=== PATIENT | male | born 1935 | race Caucasian/White ===

== ENCOUNTER 2021-08-31 15:29 | Emergency (ER) | payer OTHER, SELFPAY ==
[2021-08-31 15:34] VITALS: BP 197/88; PULSE 68; RESP 15; TEMP 36.4; O2SAT 95
--- NOTE | 2021-08-31 15:46 | DI.RAD.S_ITS ---
PROCEDURE: XR HIP W PEL IF DONE LT 2V INDICATIONS: questionable fall TECHNIQUE: 2 views of the hip were acquired. COMPARISON: None. FINDINGS: Bones: No fractures or dislocations. No suspicious bony lesions. The visualized pelvic ring appears intact. Generalized decrease in osseous mineralization noted. Mild acetabular joint space narrowing noted bilaterally. Moderate lower lumbar spine degenerative changes Soft tissues: No suspicious soft tissue calcifications or masses. IMPRESSION: Osteopenia without fracture or dislocation Degenerative changes Approved by: Sebas Sage M.D. on 08/31/2021 at 16:30
--- NOTE | 2021-08-31 16:59 | ED_ITS ---
HPI - Extremity Injury (Lower) <Nely Ennis [facility] - Last Filed: 08/31/21 20:51> General Chief Complaint: Extremity Injury, Lower Stated Complaint: non weight bearing Lt. foot Time Seen by Provider: 08/31/21 16:29 Source: patient Mode of arrival: EMS History of Present Illness HPI Narrative: This is an 86-year-old male with a history of iron deficiency anemia and has received blood transfusion for this recently and in the past who presents to the emergency department complaining of left hip pain for the last four months since he had a fall. On chart review patient was seen at [facility] ER on 2 and there had a pelvis x-ray without fracture showing moderate degenerative changes, head CT which shows no intracranial hemorrhage and no abnormality patient did have a left posterior scalp hematoma without associated fracture pain for the last four months since his fall. Patient has a history of mild dementia, I am not sure if patient means four days ago or if he means four months ago but it appears that he was evaluated for a fall two days ago and also had a fall four months ago. Patient states that his left hip pain is not any different than it is at baseline but it does hurt. He states that he gets his medicine given to him where he lives, and he needs pain medicine for this because it hurts. He denies having any pain medicine for this so far today. Patient states that his daughter takes care of all of his prescriptions and brings them to him. His daughter is not in the emergency department today, patient is oriented to self, location but not time. He states he is not able to walk on it well due to the pain. He states he uses a motorized wheelchair at home, he has seen his primary doctor 2 times for this hip pain, he denies having any history of arthritis in it, denies any sensation changes, or new falls or trauma. Related Data Previous Rx's Medication Instructions Recorded diclofenac sodium 3 % topical gel 1 applic TOPICAL BID #100 g 08/31/21 hydrocodone 5 mg-acetaminophen 325 1 tab PO BID PRN #14 tab 08/31/21 mg tablet lidocaine 5 % topical patch 1 patch TOPICAL DAILY PRN #15 ea 08/31/21 (Lidoderm) Allergies Allergy/AdvReac Type Severity Reaction Status Date / Time No Known Drug Allergies Allergy Verified 08/31/21 15:39 Review of Systems <JERMAINE Lozada - Last Filed: 08/31/21 20:51> Review of Systems Narrative: General: denies fever, chills, malaise, sweats, fatigue Head/Neck: denies headache, neck pain, dizziness Eyes: denies visual changes, eye pain Cardio: denies chest pain, palpitations, edema Respiratory: denies dyspnea, cough GI: denies abdominal pain, nausea, vomiting, or diarrhea : denies dysuria, hematuria, urinary retention, frequency or incontinence MSK: Endorses left hip pain, he states that is chronic and it always hurts and it does not feel any differently than it always does. Denies any Muscle weakness Skin: denies rash, itching, skin lesions or other Neuro: denies numbness, tingling Patient History <JERMAINE Lozada - Last Filed: 08/31/21 20:51> Social History Smoking Status: Unknown if ever smoked Smoking Status: Unknown if ever smoked alcohol intake frequency: holidays/special occasions only Substance Use Type: does not use Exam <JERMAINE Lozada - Last Filed: 08/31/21 20:51> Narrative Exam Narrative: Independently reviewed vitals signs and nursing notes. General: cooperative, comfortable, in no acute distress, well groomed Head: Healing contusion on his scalp, symmetrical facial expressions, no open wounds Neck: supple Eyes: equal round and reactive, EOMI, conjunctiva normal Nose: nares patent, no rhinorrhea Mouth/Throat: moist mucus membranes Cardiovascular: regular rate and rhythm, no peripheral edema, warm extremities Respiratory: normal effort, able to speak in complete sentences, no audible wheezing, stridor, or rales. No retractions or tachypnea. GI: abdomen soft, nontender to palpation, nondistended, no masses, no exquisite tenderness with exam, without guarding or rebound. MSK: moves all extremities, neurovascularly intact, generalized weakness, normal tone, patient able to lift leg off of bed and left right leg off the bed, denies any exacerbation of pain with this, he is able to flex his knee and flex his left hip, range of motion slightly decreased and limited due to pain Skin: brisk capillary refill, no rash, no erythema Neuro: normal speech and cognition, A&O x3 Psych: mental status is grossly normal, congruent mood, normal affect, pleasant and cooperative Initial Vital Signs Initial Vital Signs: Vital Signs Temperature 97.6 F 08/31/21 15:34 Pulse Rate 68 08/31/21 15:34 Respiratory Rate 15 08/31/21 15:34 Blood Pressure 197/88 H 08/31/21 15:34 Pulse Oximetry 95 08/31/21 15:34 <Madina Earl DO - Last Filed: 09/07/21 07:45> Initial Vital Signs Initial Vital Signs: Vital Signs Temperature 97.6 F 08/31/21 15:34 Pulse Rate 68 08/31/21 15:34 Respiratory Rate 15 08/31/21 15:34 Blood Pressure 197/88 H 08/31/21 15:34 Pulse Oximetry 95 08/31/21 15:34 Course <JERMAINE Lozada - Last Filed: 08/31/21 20:51> Orders Ordered: Discontinued Medications Hydrocodone Bitart/Acetaminophen (Hydrocodone/Acet 5/325 Tablet) 1 tab PO NOW ONE Stop: 08/31/21 17:09 Last Admin: 08/31/21 18:15 Dose: 1 tab Documented by: TATA Lidocaine (Lidocaine Patch 1 Each Adh..Patch) 1 each TOP NOW ONE Stop: 08/31/21 17:09 Last Admin: 08/31/21 18:16 Dose: 1 each Documented by: TATA Vital Signs Vital signs: Vital Signs - 8 hr 08/31/21 15:34 08/31/21 17:40 08/31/21 19:32 Temperature 97.6 F Pulse Rate 68 85 72 Respiratory Rate 15 18 18 Blood Pressure 197/88 H 170/80 H 190/91 H Pulse Oximetry 95 98 94 <DO Nicole Brothers Last Filed: 09/07/21 07:45> Orders Ordered: Discontinued Medications Hydrocodone Bitart/Acetaminophen (Hydrocodone/Acet 5/325 Tablet) 1 tab PO NOW ONE Stop: 08/31/21 17:09 Last Admin: 08/31/21 18:15 Dose: 1 tab Documented by: TATA Lidocaine (Lidocaine Patch 1 Each Adh..Patch) 1 each TOP NOW ONE Stop: 08/31/21 17:09 Last Admin: 08/31/21 18:16 Dose: 1 each Documented by: TATA Vital Signs Vital signs: Vital Signs - 8 hr 08/31/21 15:34 08/31/21 17:40 08/31/21 19:32 Temperature 97.6 F Pulse Rate 68 85 72 Respiratory Rate 15 18 18 Blood Pressure 197/88 H 170/80 H 190/91 H Pulse Oximetry 95 98 94 [facility] - Extremity Injury (Lower) <JERMAINE Lozada - Last Filed: 08/31/21 20:51> Imaging Data Extremity x-ray #1: Radiologist's Impression: PROCEDURE:? XR HIP W PEL IF DONE LT 2V ? INDICATIONS:? questionable fall ? TECHNIQUE:? 2 views of the hip were acquired.? ? COMPARISON:? None. ? FINDINGS:? ? Bones:? No fractures or dislocations.? No suspicious bony lesions.? The visualized pelvic ring appears intact.? Generalized decrease in osseous mineralization noted.? Mild acetabular joint space narrowing noted bilaterally.? Moderate lower lumbar spine degenerative changes ? Soft tissues:? No suspicious soft tissue calcifications or masses.? ? IMPRESSION:? ? Osteopenia without fracture or dislocation ? Degenerative changes ? ? ? Approved by: Sebas Sage M.D. on 08/31/2021 at 16:30? ECG Data Interpretation: EKG independently reviewed and reveals normal sinus rhythm at 78 bpm with regular axis and intervals. No STEMI, ST segment changes, arrhythmia, or acute ischemic changes. MDM Narrative Medical decision making narrative: This is a 86-year-old male who presents to the emergency department for exacerbation of left hip pain, patient states this is been ongoing for the last four months. [facility] had an x-ray of his pelvis and left hip on 08/29/2021, this was negative for acute fracture with normal alignment, moderate degenerative changes and associated lower lumbar spondylosis and sacroiliac joint degenerative change, today his x-ray is very similar, a shows osteopenia without fracture dislocation, degenerative changes present, patient also had a CT head on 08/29/2021 which was negative for acute intracranial hemorrhage or acute abnormality. Patient states that he needs pain medicine for his chronic left hip pain, he states it is painful all of the time and has not changed over the last four months. He states he has seen his primary doctor 2 times for this, went to [facility] for this, in a does not get better. Patient adamantly denies having any arthritis, he was treated with hydrocodone, lidocaine patch, and prescribed diclofenac gel with hydrocodone and lidocaine patches. Encouraged him to follow-up with his primary doctor for chronic pain management for this hip, it is notable that patient was anemic and received a blood transfusion on his visit at [facility], today patient is alert, without pallor, interactive, no signs of bleeding, states that he is tolerating food and having normal bowel movements and urinating without any changes. Patient understands to follow-up with his doctor and will return to the emergency department for any new or worsening symptoms. Patient is appropriate and amenable to discharge home. Vital signs are stable on repeat examination is unremarkable. Patient has been informed of results. Patient has been given strict return to ER precautions for any new or worsening symptoms. Patient understands to follow up closely with outpatient providers as instructed. Patient understands plan and agrees to discharge home. All questions and concerns answered at this time. Discharge Plan Departure Patient Disposition: Home Clinical Impression: Acute hip pain Qualifiers: Laterality: left Qualified Code(s): M25.552 - Pain in left hip Instructions: DI for Hip Pain Activity Restrictions/Additional Instructions: *You have been diagnosed with left-sided hip pain from an injury four months ago. On review of your images from [facility] and your x-ray today there is no fracture of your left hip there is moderate amount of degenerative changes and osteopenia due to age. All bones are in alignment. Please treat pain with ice and heat, Tylenol 650 mg every 6 hours, lidocaine patches every 12 hours as needed. Please apply Voltaren gel 2-4 times a day on areas of pain. Please follow-up with your primary doctor for opioid pain medication. Please return to the emergency department for any new sensation changes, wounds, or anything that is acute. Please follow-up with your primary care doctor for ongoing chronic pain needs. I hope that you start to feel better soon. Thank you for trusting us with your care. Please make sure you use your wheelchair at all times to prevent fall. *What to do: *Please continue to take your regular medications as directed. [ x] New medication prescriptions sent to your pharmacy: [ [facility]] [ ] New medication written as a paper prescription [ ] No new medications given *Please follow up with your primary care provider in 2-3 days, call for an appointment. Let them know you were seen in the Emergency Department and that we asked that you be seen for follow-up. We will electronically transmit a record of today's note if your PCP is in our system *If you do not have a primary care provider please contact [phone] to [facility] with one of the [facility] primary care providers. *Return to Emergency Department if you should have any new, worsening or concerning symptoms, such as [fever greater than 101F, chills, worsening pain, persistent vomiting or other bothersome symptoms] Prescriptions: New hydrocodone-acetaminophen 5-325 mg tablet 1 tab PO BID PRN (Reason: pain) Qty: 14 0RF diclofenac sodium 3 % gel 1 applic topical BID Qty: 100 0RF lidocaine [Lidoderm] 5 % adhesive patch,medicated 1 patch topical DAILY PRN (Reason: pain (scale score 1-3)) Qty: 15 0RF Rx Instructions: leave on most painful area for up to 12 hrs Referrals: Rafael Resendiz DO [Primary Care Provider] - <Madina Earl DO - Last Filed: 09/07/21 07:45> Cosign ED Attending Cosignature Attestation: I was immediately available in the department for consultation. Documentation has been reviewed.
[2021-08-31 17:40] VITALS: BP 170/80; PULSE 85; RESP 18; O2SAT 98
[2021-08-31] MEDS: HYDROCODONE/ACET 5/325 TABLET 1 TAB PO (18:15)
[2021-08-31] MEDS: LIDOCAINE PATCH 1 EACH ADH..PATCH TOP (18:16)
[2021-08-31 19:32] VITALS: BP 190/91; PULSE 72; RESP 18; O2SAT 94
== END 2021-08-31 19:32 | disposition home or self-care (01) ==
PROVIDERS: Emergency Provider Nurse Practitioner Critical Care Medicine; PCP Family Medicine
DX: M25.552 Pain in left hip (principal); F03.90 Unspecified dementia, unspecified severity, without behavioral disturbance, psychotic disturbance, mood disturbance, and anxiety; W19.XXXA Unspecified fall, initial encounter; R29.6 Repeated falls
CPT/HCPCS: 73502; 99283; 99284